=== PATIENT | male | born 2005 | race Caucasian/White ===

== ENCOUNTER 2024-08-02 06:45 | Outpatient (RCR) | payer BC, SELFPAY | END 2024-08-02 14:51 | disposition home or self-care (01) | LOC: ROT 06:45 | PROVIDERS: ATTENDING PHYSICIAN Orthopaedic Surgery Hand Surgery | DX: G56.20 Lesion of ulnar nerve, unspecified upper limb (principal); Z73.6 Limitation of activities due to disability | CPT/HCPCS: 97166; 97535 ==

== ENCOUNTER 2025-05-12 01:24 | Emergency (ER) | payer BC, SELFPAY ==
[2025-05-12 01:30] VITALS: BP 124/67
--- NOTE | 2025-05-12 02:07 | ED.GENMED ---
History of Present Illness
General
Chief Complaint: Musculo-Skeletal Complaint
Source: patient
Time Seen by Provider: 05/12/25 01:44
History of Present Illness
History of Present Illness:
19-year-old male presenting to the ER for evaluation after accidentally tripped on the stairs injuring his left ankle, noting pain, swelling and ecchymosis with an inability to ambulate secondary to the pain. Patient does admit to some alcohol use
tonight but states no other injuries were sustained. Patient did not take anything for the pain prior to arrival. No other concerns at this time
Past History
Past History
ED Past Medical History: Psychiatric
ED Past Surgical History: Tonsilectomy
Social History
Tobacco: Non-smoker
Alcohol: Occasional
Drug: None
Personal: Single
Living: with family
Review of Systems
Review of Systems
All Other Systems: ROS reviewed and negative except as documented in HPI and ROS
Phy Exam
Physical Exam
Physical Exam:
GENERAL: Alert , in no apparent distress
EYE: conjunctiva clear
Head: Normocephalic atraumatic
NECK: Supple,
ENT: mmm.
LUNGS: no acute respiratory distress
NEUROLOGICAL: Alert and oriented
SKIN: Warm and dry, skin intact.
MUSCULOSKELETAL: Left lower extremity: There is diffuse soft tissue swelling and ecchymosis more prominent on the lateral aspect of the ankle with tenderness over the distal fibula. Easily palpable pedal and tibial pulse. Cap refill less than 2
seconds. Sensation grossly intact to light touch. No proximal tib-fib tenderness. No tenderness at the base of the fifth metatarsal.
PSYCH: Normal and appropriate interaction.
Scores
Heart Failure Risk
Heart Failure Risk Score: Not Applicable
Heart Score for Chest Pain Patients
STEMI patient?: Not applicable
Withdrawal Assessment of Alcohol
Withdrawal Assessment Completed?: Not applicable
Course
Orders/Labs/Results
Orders:
Orders
05/12/25 01:35
Ankle, left 3 view CR [CR Ankle - Left Min 3 Views ] Urgent
Comment:
Reason For Exam: injury
05/12/25 02:07
Crutches-Treatment ONCE
Vital Signs
Initial and Last Documented VS:
Initial Vital Signs
Temp Pulse Resp BP Pulse Ox
98 F 82 20 124/67 97
05/12/25 01:30 05/12/25 01:30 05/12/25 01:30 05/12/25 01:30 05/12/25 01:30
Last Documented Vital Signs
Temp Pulse Resp BP Pulse Ox
98 F 82 20 124/67 97
05/12/25 01:30 05/12/25 01:30 05/12/25 01:30 05/12/25 01:30 05/12/25 02:07
Procedures
Splinting/Sling Placement
Left Lower Leg:
Procedure completed by: Iesha
Pre-splint extermity exam: neurovascular intact
Type of splint: sugar-tong and posterior short leg
Splint material: other (3 inch Ortho-Glass)
Splint checked by provider?: Yes
MDM/Problems Addressed
Differential Diagnosis Includes:
The Differential Diagnosis includes, in no particular order and is not limited to:
1. Ankle fracture
2. Ligament sprain
3. Osteochondral injury
4. Tibial fracture
5. Fibular fracture
6. Joint dislocation
7. Soft tissue contusion
8. Tendon injury
9. Stress fracture
10. Ankle instability
MDM/Problems Addressed:
- Apply a splint for temporary immobilization.
- Educate the patient on the use of crutches.
- Advise follow-up with an campaign specialist.
- Recommend limiting activities until seen by orthopedic specialists.
*Radiology
Radiology exam reviewed: preliminary read by ED provider (Distal fibula fracture)
*Pulse Oximetry
SaO2: 97
Oxygen Mode of Delivery: Room air
Patient hypoxic: no
*Critical Care Note
Total Time (30-74mins, 75-104mins- exclusive of procedures): Not Applicable
ED Attending Note
-
Portions of this chart may have been created with voice recognition software.� Occasional wrong word or��sound alike� substitutions may have occurred due to the inherent limitations of voice recognition software.
Discharge Plan
Departure
Patient Disposition: Home (Routine Discharge)
Date of Disposition: 05/12/25
Time of Disposition: 02:07
Patient with high blood pressure during this ER visit?: No
Discharge Problem:
Closed fracture of distal end of left fibula
Instructions: Ankle Fracture (DC)
Prescriptions:
No Action
ondansetron 4 MG tablet,disintegrating
4 mg PO TIDPRN PRN (Reason: nausea) Qty: 6 0RF
Referrals:
Donna Benito I., DO [Active, Orthopedics]
Referral Note: Call for appointment
UNKNOWN - PT DOES,NOT KNOW [Family Provider]
Interventions
Interventions:
*Risk Screen - Suicide Last Done: 05/12/25 01:30
*General Assessment Last Done: 05/12/25 01:30
*Neglect/Abuse Screening Last Done: 05/12/25 01:30
*ED- Fall Risk Assessment Last Done: 05/12/25 01:30
*ED COVID-19 Vaccine History Last Done: 05/12/25 01:30
Discharge Date and Time
Print Language: LAO
== END 2025-05-12 02:33 | disposition home or self-care (01) ==
LOC: EMR 01:24
PROVIDERS: EMERGENCY PHYSICIAN Emergency Medicine
DX: S82.832A Other fracture of upper and lower end of left fibula, initial encounter for closed fracture (principal); W18.49XA Other slipping, tripping and stumbling without falling, initial encounter
CPT/HCPCS: 29515; 99283; 73610